=== PATIENT | male | born 1955 | race Caucasian/White ===

== ENCOUNTER 2016-10-09 11:10 | Inpatient (IN) | payer MEDICARE ==
[2016-10-09] VITALS (8 sets, daily range): BP systolic 108–138; BP diastolic 58–79; BMI 27.2
[~2016-10-09] VITALS: Ht 182.9 cm; Wt 79.8 kg
[2016-10-09 11:37] LABS: BASOPHILS 0.3 % (0-2); EOSINOPHILS 0 % (0-7); HEMATOCRIT 34.6 % (42.0-54.0); HEMOGLOBIN 10.8 g/dL (13.5-17.5); IMMATURE GRANULOCYTES 0.3 % (0-5); LYMPHOCYTES 6.6 % (15-50); MCH 27.7 pg (26.0-34.0); MCHC 31.2 g/dL (31.0-37.0); MCV 88.7 fL (80.0-100.0); MEAN PLATELET VOLUME 9.1 fL (7.4-10.4); MONOCYTES 6.5 % (2-11); NEUTROPHILS 86.3 % (40-80); PLATELET COUNT 246 10x3/uL (130-400); RDW 14.2 % (11.5-14.5); WBC 7.6 10x3/uL (4.8-10.8)
[2016-10-09 11:45] LABS: AMORPHOUS SEDIMENT <1+ /lpf (NONE SEEN); APPEARANCE HAZY (CLEAR); BACTERIA FEW /hpf (NONE SEEN); BILIRUBIN NEGATIVE (NEGATIVE); COLOR YELLOW (YELLOW); EPITHELIAL CELLS RARE /hpf (0-5); GLUCOSE 1000 mg/dL (NEGATIVE); KETONE MODERATE mg/dL (NEGATIVE); LEUKOCYTE ESTERASE NEGATIVE (NEGATIVE); MUCUS <1+ /lpf (NONE SEEN); NITRITE NEGATIVE (NEGATIVE); PROTEIN 2+ mg/dL (NEGATIVE); SPECIFIC GRAVITY 1.015 (1.005-1.020); UROBILINOGEN NORMAL (NORMAL); WHITE CELLS - URINE RARE /hpf (0-5); YEAST <1+ /hpf (NONE SEEN)
[2016-10-09 12:01] LABS: ALBUMIN 2.7 g/dL (3.4-5.0); ANION GAP 15.5 mmol/L (8-16); BILIRUBIN - TOTAL 0.51 mg/dL (0.2-1.3); CARBON DIOXIDE 26.9 mmol/L (21.0-32.0); CREATININE - SERUM 2.4 mg/dL (0.6-1.3); POTASSIUM - SERUM 4.4 mmol/L (3.5-5.1); PROTEIN - SERUM 8.4 g/dL (6.4-8.2)
--- NOTE | 2016-10-09 16:16 | NUR ---
TRIED TO CHECK FSBS USING GLUCOMETER. POPPED UP A MESSAGE 'HIGH CALL LAB STAT FOR GLUCOSE BLOOD DRAW.' PUT IN ORDER FOR STAT GLUCOSE
[2016-10-09 16:25] LABS: HEMOGLOBIN A1C 13.8 % (4.8-6.0)
--- NOTE | 2016-10-09 17:29 | NUR ---
CALLED REPORT TO BRENDEN KEARNEY.
[2016-10-09 17:34] LABS: CALCIUM 8.6 mg/dL (8.5-10.1); POTASSIUM - SERUM 4.6 mmol/L (3.5-5.1)
[2016-10-09 17:47] LABS: ANION GAP 18.8 mmol/L (8-16); CARBON DIOXIDE 26.8 mmol/L (21.0-32.0); CREATININE - SERUM 1.2 mg/dL (0.6-1.3)
--- NOTE | 2016-10-09 17:50 | NUR ---
TRANSFERED PATIENT TO ICU.
--- NOTE | 2016-10-09 18:26 | NUR ---
1755 PT RECIEVED IN THE ICU VIA WHEELCHAIR.. PT IS AWAKE AND ALERT.. THERE IS A DRESSING ON PTS LEFT FOOT CDI WITH A FOULORDER EMINATING FROM DRESSING ,, PT STATES THAT HE HAS BEEN TREATING THIS WOUND AND THAT IT IS NOW INFECTED AND THIS HAS AFFECTED HIS BLOOD SUGAR.. ASSISTED TO ICU BED AND MONITORING EQUIPMENT PLACED ON PT.. ORDERS REVIEWED AND BLOOD SUGAR IS OBTAINED..NS IS INFUSING INTO PIV ON LEFT AC AT 150CC/HR.. 1800 BS IS 562 AT THIS TIME AND SERUM KETONES ARE NEGATIVE INTENSE IV INSULIN THERAPY ORDERS REVIEWED FROM INTRANET STANDING ORDERS AND LABS ORDERED PRIOR TO INITIATION OF IV INSULIN..
--- NOTE | 2016-10-09 19:00 | NUR ---
Assessment completed per flowsheet, received patient resting in bed with eyes closed. Patient AOx4, demeanor is pleasant and calm. Eyes PERRLA @ 3mm with brisk response, sclera is white. S1/S2 noted with patient NSR on telemetry, rhythmic and regular. Breathing is even and unlabored on room air, lung sound clear upper with slightly diminished lower. Abdomen is round and soft, bowel sounds active x4. Patient uses urinal without assistance, no reported difficulties. Full ROM all extremities with upper pulses palpable, R lower palpable with doppler on L lower. Ulceration and sores noted L foot interor, scant bloody drainage noted on gauze. 20g PIV noted R AC, patent with fluids infusing. Denies pain or other needs at this time, all VSS and will continue to monitor.
[2016-10-09 19:23] LABS: POTASSIUM - SERUM 4.3 mmol/L (3.5-5.1)
--- NOTE | 2016-10-09 19:30 | NUR ---
Insulin protocol initiated, 14 unit bolus given with start rate of 4units/hr for BS 581. Will recheck per protocol.
[2016-10-09] MEDS ORDERED: PEPCID20 MG PO (20:57)
[2016-10-09] MEDS ORDERED: COREG6.25 MG PO (20:57)
[2016-10-09] MEDS ORDERED: FLORANEX / LACT1 TAB PO (20:58)
[2016-10-09] MEDS ORDERED: HUMALOG 30100 UNITS/ SC (20:58)
[2016-10-09] MEDS ORDERED: FERROUS SULFAT325 MG PO (20:59)
[2016-10-09] MEDS ORDERED: GLIPIZIDE10 MG PO (20:59)
[2016-10-09] MEDS ORDERED: VICTOZA0.6 MG/0.1 SQ (20:59)
[2016-10-09] MEDS ORDERED: LIPITOR80 MG PO (20:59)
[2016-10-09] MEDS ORDERED: ECOTRIN325 MG PO (21:00)
--- NOTE | 2016-10-09 21:00 | NUR ---
No visitors at this time, patient resting in bed with eyes closed. Denies pain or other needs at this time, all VSS and will continue to monitor.
--- NOTE | 2016-10-09 22:47 | NUR ---
Reassessment completed per flowsheet, patient resting in bed with eyes closed. Patient NSR on telemetry, rhythmic and regular. Breathing is even and unlabored on room air, O2 sat 99%. L foot pulses doppler, ulceration open with no drainage. Insulin GTT infusing, will continue to monitor per protocol. Denies pain or other needs at this time, all VSS and will continue to monitor.
[2016-10-10] VITALS (25 sets, daily range): BP systolic 97–149; BP diastolic 51–93; Ht 182.9 cm; Wt 79.8 kg
[2016-10-10 00:33] LABS: APPEARANCE HAZY (CLEAR); BILIRUBIN NEGATIVE (NEGATIVE); COLOR YELLOW (YELLOW); GLUCOSE 1000 mg/dL (NEGATIVE); KETONE NEGATIVE (NEGATIVE); LEUKOCYTE ESTERASE NEGATIVE (NEGATIVE); NITRITE NEGATIVE (NEGATIVE); PROTEIN 2+ mg/dL (NEGATIVE); UROBILINOGEN NORMAL (NORMAL)
[2016-10-10 00:41] LABS: AMORPHOUS SEDIMENT <1+ /lpf (NONE SEEN); BACTERIA MANY /hpf (NONE SEEN); EPITHELIAL CELLS 0-5 /hpf (0-5); HYALINE CAST OCC /lpf (NONE SEEN); MUCUS <1+ /lpf (NONE SEEN); SPERMATOZOA RARE /hpf (NONE SEEN); WHITE CELLS - URINE 0-5 /hpf (0-5)
--- NOTE | 2016-10-10 01:00 | NUR ---
Patient resting in bed with eyes closed, breathing is even and unlabored on room air. No further needs at this time, all VSS and will continue to monitor.
--- NOTE | 2016-10-10 02:56 | NUR ---
Reassessment completed per flowsheet, patient resting in bed with eyes closed. Patient NSR on telemetry with HR 84, rhythmic and regular. Breathing is even and unlabored on room air, O2 sat 98%. L foot ulceration noted, scant serosanguinous drainage noted. Patient remains on insulin drip per protocol, will continue to monitor. Patient denies pain or other needs at this time, all VSS and will continue to monitor.
[2016-10-10 04:21] LABS: BASOPHILS 0.3 % (0-2); EOSINOPHILS 0.4 % (0-7); HEMATOCRIT 30.4 % (42.0-54.0); HEMOGLOBIN 9.8 g/dL (13.5-17.5); IMMATURE GRANULOCYTES 0.1 % (0-5); LYMPHOCYTES 13.3 % (15-50); MCH 27.5 pg (26.0-34.0); MCHC 32.2 g/dL (31.0-37.0); MEAN PLATELET VOLUME 9.1 fL (7.4-10.4); MONOCYTES 8.4 % (2-11); NEUTROPHILS 77.5 % (40-80); PLATELET COUNT 243 10x3/uL (130-400); RBC 3.57 10x6/uL (4.20-6.10); RDW 14.1 % (11.5-14.5); WBC 6.8 10x3/uL (4.8-10.8)
[2016-10-10 04:25] LABS: MCV 85.2 fL (80.0-100.0)
[2016-10-10 04:39] LABS: ALBUMIN 2.3 g/dL (3.4-5.0); ANION GAP 9.5 mmol/L (8-16); BILIRUBIN - TOTAL 0.29 mg/dL (0.2-1.3); CALCIUM 8.6 mg/dL (8.5-10.1); CARBON DIOXIDE 29.3 mmol/L (21.0-32.0); POTASSIUM - SERUM 3.8 mmol/L (3.5-5.1); PROTEIN - SERUM 7.4 g/dL (6.4-8.2)
[2016-10-10 04:44] LABS: CREATININE - SERUM 1.9 mg/dL (0.6-1.3)
--- NOTE | 2016-10-10 05:00 | NUR ---
Chlorhexidine bath given and linen change performed, patient tolerated well. No further needs at this time, all VSS and will continue to monitor.
--- NOTE | 2016-10-10 07:30 | NUR ---
REPORT RECD PT CARE ASSUMED. PT IS ALERT AND ORIENTED X 4. S1S2 NOTED SR PER CM. LUNG SOUNDS CLR BILAT. PT C/O SOME NAUSEA, NO VOMITTING OR TENDERNESS TO PALPATION. PT HAS ULCERS TO LEFT FOOT, SEE SHIFT ASSESSMENT FOR MEASUREMENTS. ODOR NOTED, PITTING EDEMA TO EXREMITES WELL REDNESS AND IS HOT TO TOUCH. PT STATES THE ULCERS STARTED LAST NOVEMBER. PT ON INSULIN DRIP AT THIS TIME, BS 150. WILL TITRATE/DC DRIP NECASSARY. 2ND PIV STARTED TO LEFT ARM FOR OR TODAY. WILL REMAIN NPO. VSS. WILL MONITOR.
--- NOTE | 2016-10-10 08:27 | NUR ---
PT ASKED WAHT MEDICATION HE TAKES AT HOME FOR HIS DIABETES. PT STATES "I TAKE A WHOLE BUNCH OF MEDS BUT I HAVENT HAD THEN FOR A MONTH." PT STATES THAT HE DOES NOT HAVE A PCP AT THE MOMENT SO HE HAS NOT BEEN GETTING HIS MEDICINE.
--- NOTE | 2016-10-10 12:10 | NUR ---
SURGERY CANCELLED FOR TODAY. CONSULT CALLED TO DR WHITE TO EVAL LEFT LEG. PT PROVIED WITH LUNCH. CLEAN BANDAGE APPLIED TO LEFT FOOT.
--- NOTE | 2016-10-10 14:00 | NUR ---
PT EATS ABOUT 65% OF LUNCH. PT REQUESTS DRINK, COLD DRINK PROVIDED. VSS.
--- NOTE | 2016-10-10 16:00 | NUR ---
PT RESTING QUIETLY IN BED WITH EYES CLOSED. NO DISTRESS NOTED, VSS. WILL MONITOR.
--- NOTE | 2016-10-10 17:15 | NUR ---
DINNER TRAY PROVIDED. PT SITS AT SIDE OF THE BED TO EAT.
--- NOTE | 2016-10-10 19:00 | NUR ---
Assessment completed per flowsheet, received patient awake and alert in bed watching TV. Patient AO x4, calm and cooperative. Eyes PERRLA @ 3mm with brisk response, sclera is white. S1/S2 noted with patient NSR on telemetry, rhythmic and regular. Breathing is even and unlabored on room air, lung sounds clear all limon. Abdomen is soft and round, bowel sounds active x4. Patient uses urinal/bedside commode without assistance, no reported difficulties. Full ROM all extremities with upper pulses palpable, R lower palpable with L lower weak with Cap refill <3 sec. 20g PIV R AC/L Wrist, patent with fluids infusing. Patient denies pain or other needs at this time, all VSS and will continue to monitor.
--- NOTE | 2016-10-10 23:00 | NUR ---
Reassessment completed per flowsheet, patient resting in bed with eyes closed. Patient NSR on telemetry with HR 88, rhythmic and regular. Breathing is even and unlabored on room air, O2 sat 98%. Patient voided 300ml concentrated yellow urine in urinal, no difficulties. Patient denies pain or other needs at this time, all VSS and will continue to monitor.
[2016-10-11] VITALS (22 sets, daily range): BP systolic 108–165; BP diastolic 54–83
--- NOTE | 2016-10-11 03:00 | NUR ---
Reassessment completed per flowsheet, patient resting in bed with eyes closed. Patient NSR on telemetry with HR 79, rhythmic and regular. Breathing is even and unlabored on room air, O2 sat 97%. L foot dressing changed, yellow/pink drainage noted on gauze. Patient denies pain or other needs at this time, all VSS and will continue to monitor.
[2016-10-11 03:43] LABS: BASOPHILS 0.2 % (0-2); EOSINOPHILS 1.3 % (0-7); HEMATOCRIT 27.7 % (42.0-54.0); HEMOGLOBIN 8.7 g/dL (13.5-17.5); IMMATURE GRANULOCYTES 0.3 % (0-5); LYMPHOCYTES 15.2 % (15-50); MCH 27.1 pg (26.0-34.0); MCHC 31.4 g/dL (31.0-37.0); MCV 86.3 fL (80.0-100.0); MEAN PLATELET VOLUME 8.8 fL (7.4-10.4); MONOCYTES 12.6 % (2-11); NEUTROPHILS 70.4 % (40-80); PLATELET COUNT 211 10x3/uL (130-400); RBC 3.21 10x6/uL (4.20-6.10); RDW 14.3 % (11.5-14.5); WBC 6.1 10x3/uL (4.8-10.8)
[2016-10-11 04:01] LABS: ANION GAP 7.3 mmol/L (8-16); BILIRUBIN - TOTAL 0.36 mg/dL (0.2-1.3); CALCIUM 8.4 mg/dL (8.5-10.1); CARBON DIOXIDE 29.3 mmol/L (21.0-32.0); CREATININE - SERUM 1.8 mg/dL (0.6-1.3); POTASSIUM - SERUM 3.6 mmol/L (3.5-5.1); PROTEIN - SERUM 6.5 g/dL (6.4-8.2)
--- NOTE | 2016-10-11 07:00 | NUR ---
Received patient from Marcell WILCOX. Patient is currently resting in bed, AAO x4. Pleasent and calm. Patient denies pain. C/O some nausea at this time. Zofran administered recently, informed patient of this. Told him that if the nausea worsens to let me know and I would call physician for additional orders, he stated it wasnt that bad at this point. Left AC with NS and extended Zosyn gtt infusing, PIV without redness or tenderness. Right wrist PIV saline locked, flushes well, pt denies tenderness. Patient moves all extremitries without difficulty. Strength equal. Radial pulses bounding. Left foot swollen, red, with dressing. Scant drainage noted on dressing. Left great toe swollen and red, painful to touch. See shift assessment flowsheet for all findings.
--- NOTE | 2016-10-11 08:58 | NUR ---
through to see patient. POC discussed.
--- NOTE | 2016-10-11 09:27 | NUR ---
okays patient to transfer to floor if okay with others on healthcare team.
[2016-10-11 09:33] LABS: % SATURATION 20 % (15-55); IRON 23 ug/dl (35-150); TOTAL IRON BIND CAPACITY 114 ug/dl (260-445); UNSAT IRON BIND CAPACITY 91 ug/dl (150-375)
--- NOTE | 2016-10-11 09:39 | NUR ---
Spoke to Danna Tyler APRN for [facility], okay to transfer to floor from orthopedics standpoint. Patient on OR schedule for 1629 today.
--- NOTE | 2016-10-11 09:44 | NUR ---
Nutrition follow-up: Pt now NPO for left great toe amputation today PO intake has been ~50% of meals Labs reviewed +BM RDN will monitor patients diet advancement and tolerance post-surgery. Following.
--- NOTE | 2016-10-11 10:46 | NUR ---
Report called to Reggie WILCOX on MEd Surg. Pt to go to 2218 via wheelchair
--- NOTE | 2016-10-11 11:54 | NUR ---
Patient transferred to 2218 via wheelchair. Patient ambulated to and from chair without issue. Patient oriented to unit, room and given call light. Patient denied needs.
--- NOTE | 2016-10-11 13:00 | NUR ---
RECEIVED FROM ICU, DENIES NEEDS, BED LOWEST POSITION, CONTACT ISOLATION, WILL CONTINUE TO MONITOR
--- NOTE | 2016-10-11 19:00 | NUR ---
BEDSIDE REPORT RECEIVED AND CARE OF PT ASSUMED. PT IN SURGERY AT THIS TIME.
--- NOTE | 2016-10-11 21:00 | NUR ---
PT RETURNED FROM SURGERY VIA BED, ESCORTED BY ER NURSE. VITALS STABLE. PT AWAKE AND ALERT, AND C/O NO PAIN AT THIS ASSESSMENT. DRESSING ON LEFT FOOT CLEAN AND DRY.
--- NOTE | 2016-10-11 21:05 | NUR ---
GAVE SANDWICH, PUDDING AND MILK , PT HAS BEEN NPO ALL DAY.
--- NOTE | 2016-10-11 21:30 | NUR ---
STARTED IV FLUIDS PER ORDER.
--- NOTE | 2016-10-11 21:45 | NUR ---
GAVE CRANBERRY JUICE PER PT REQUEST.
--- NOTE | 2016-10-11 21:53 | NUR ---
HS MEDICATIONS GIVEN. FSBS 217 WHEN CHECKED IN RECOVERY. COVERED WITH 12 UNITS OF INSULIN PER SLIDING SCALE. WILL CONTINUE TO MONITOR FOR NEEDS.
--- NOTE | 2016-10-12 00:07 | NUR ---
ASSISTED PT TO USE BEDPAN FOR BM.
[2016-10-12 04:00] VITALS: BP 122/65
[2016-10-12 06:32] LABS: BASOPHILS 0.4 % (0-2); EOSINOPHILS 1.5 % (0-7); HEMATOCRIT 27.2 % (42.0-54.0); HEMOGLOBIN 8.7 g/dL (13.5-17.5); IMMATURE GRANULOCYTES 0.5 % (0-5); LYMPHOCYTES 15.7 % (15-50); MCH 27.8 pg (26.0-34.0); MCV 86.9 fL (80.0-100.0); MEAN PLATELET VOLUME 9.1 fL (7.4-10.4); MONOCYTES 11.2 % (2-11); NEUTROPHILS 70.7 % (40-80); PLATELET COUNT 225 10x3/uL (130-400); RBC 3.13 10x6/uL (4.20-6.10); RDW 14.8 % (11.5-14.5); WBC 5.5 10x3/uL (4.8-10.8)
[2016-10-12 07:01] LABS: ALBUMIN 1.9 g/dL (3.4-5.0); BILIRUBIN - TOTAL 0.47 mg/dL (0.2-1.3); CARBON DIOXIDE 27.2 mmol/L (21.0-32.0); CREATININE - SERUM 1.6 mg/dL (0.6-1.3); PROTEIN - SERUM 6.3 g/dL (6.4-8.2)
[2016-10-12 07:07] LABS: ANION GAP 10.1 mmol/L (8-16); POTASSIUM - SERUM 4.3 mmol/L (3.5-5.1)
--- NOTE | 2016-10-12 07:10 | NUR ---
PATIENT RECEIVED ALERT IN MID MIRANDA POSITION. RESPIRATIONS EVEN AND UNLABORED. SIDE RAILS UP X2. BED IN LOW POSITION. CALL LIGHT IN REACH. DENIES PAIN AND OTHER NEEDS.
[2016-10-12 07:50] VITALS: BP 165/93
--- NOTE | 2016-10-12 08:07 | NUR ---
PATIENT ALERT IN BED. RESPIRATIONS EVEN AND UNLABORED. DENIES NEEDS. SIDE RAILS UP X2. BED IN LOW POSITION. CALL LIGHT IN REACH.
[2016-10-12 08:22] LABS: FOLATE (FOLIC ACID) - SERUM 15.7 ng/mL (>3.0)
--- NOTE | 2016-10-12 11:30 | NUR ---
PATIENT ALERT IN BED. NO SIGNS OF DISTRESS NOTED. DENIES NEEDS. ACCU CHECK 307. INSULIN PER SLIDING SCALE. SIDE RAILS UP X2. BED IN LOW POSITION. CALL LIGHT IN REACH.
--- NOTE | 2016-10-12 11:38 | OP ---
PATIENT NAME: ALIN REICH MEDICAL RECORD: [id number] :53 LOCATION:[id number] ADMISSION DATE:10/09/16 SURGEON: TATY WHITE MD DATE OF OPERATION: 10/11/2016 Orthopedic Surgery Operative Note PREOPERATIVE DIAGNOSIS: Osteomyelitis of the left great toe and entire first metatarsal. POSTOPERATIVE DIAGNOSIS: Osteomyelitis of the left great toe and entire first metatarsal. PROCEDURES: Great toe and ray resection of the entire metatarsal along with excisional debridement of skin, subcutaneous tissue, portions of fat, fascia, muscle and bone with primary closure. INDICATIONS: Mr. Reich has very poorly controlled diabetes and has not been compliant for several months and came in with a blood sugar over 700 and hemoglobin A1c of 12. He has an ulcer and MRI showed that it was extending all along and into his metatarsal as well as throughout his great toe. OPERATIVE SUMMARY IN DETAIL: After obtaining the appropriate preoperative orthopedic surgery consent as well as anesthetic consultation, evaluation and clearance, the patient was brought to the operating room and placed on the operating table in supine position. After general laryngeal mask was administered, tourniquet was placed about the distal aspect of left lower extremity. The lower extremity was then prepped and draped in a routine sterile fashion. An incision was made across the great toe MTP joint, had fulminant pus. Cultures were taken times 3. The great toe was disarticulated and taken down. At this point, the excision was extended up the medial side of the first ray metatarsal. Dissection was carried subperiosteal around this and it too was disarticulated at the medial cuneiform metatarsal joint. At this point, sharp scalpel debridement along with curettage debridement was used to take everything down. The tourniquet had been deflated prior to this and then after all necrotic tissue was deflated, the tourniquet was let down. After a few moments, good bleeding was applied, in fact the deep plantar arch arterial supply bled to the point where it needed a medium Ligaclip. Given to only good blood supply and fresh red clean-appearing tissue, I felt it was reasonable to try and close this primarily. After a copious bulb syringe, lavage was done, 2-0 Prolene was done and a xgri-auv-xjn-near suture arrangements to close the entire area including the excised plantigrade ulcer. Having completed this, sterile dressings were applied. The patient was awakened, taken to recovery in stable condition. All final needle and sponge counts were correct. TRANSINT:[id number] Voice Confirmation ID: [id number] DOCUMENT ID: [id number] OPERATIVE REPORT [id number] ALIN REICH MD, TATY ECHEVERRIA at 1138 CC: [id number] DICTATION DATE: 10/11/162036 MANAGER PUBLISHING: 10/12/16 0245 ADM IN [id number] [place] [address]
[2016-10-12 12:10] VITALS: BP 160/78
--- NOTE | 2016-10-12 13:51 | NUR ---
NUTRITION MONITORING & EVAL CHART REVIEWED, PT VISIT. TOLERATING ADA DIET, 100% INTAKE RECENT MEALS. NOW IN ISOLATION. WILL CONTINUE TO PROVIDE ADA DIET, MONITOR PO INTAKE, PT PROGRESS. RD FOLLOWING
--- NOTE | 2016-10-12 14:43 | NUR ---
PATIENT IN LEFT LATERAL POSITION RESTING WITH EYES CLOSED. RESPIRATIONS EVEN AND UNLABORED. WAKES EASY. DENIES NEEDS. SIDE RAILS UP X2. BED IN LOW POSITION. CALL LIGHT IN REACH.
[2016-10-12 15:40] VITALS: BP 157/77
--- NOTE | 2016-10-12 17:38 | NUR ---
ALERT IN BED. ACCU CHECK 162. INSULIN PER SLIDING SCALE. SIDE RAILS UP X2. BED IN LOW POSITION. CALL LIGHT IN REACH. DENIES NEEDS.
--- NOTE | 2016-10-12 17:40 | NUR ---
IV TO LEFT WRIST RED AND PUFFY. IV D/C WITH CATH TIP INTACT. SECOND IV TO LEFT FOREARM SALINE LOCK AND PATENT. CURRENT ABX SWITCHED TO INFUSE TO LEFT FOREARM IV
[2016-10-12 20:00] VITALS: BP 138/75
--- NOTE | 2016-10-12 21:47 | NUR ---
PATIENT RESTING IN BED WITH NO SIGNS OF DISTRESS. CHECKED BLOOD GLUCOSE, RESULTS 189. NOTIFIED UNIQUE PAULSON OF RESULTS. BED IN LOWEST POSITION AND CALL LIGHT WITHIN REACH. ENCOURAGED THE PATIENT TO CALL IF HE HAS NEEDS.
[2016-10-13] VITALS (22 sets, daily range): BP systolic 124–152; BP diastolic 59–90
[2016-10-13 05:12] LABS: BASOPHILS 0.3 % (0-2); EOSINOPHILS 3.2 % (0-7); HEMATOCRIT 24.9 % (42.0-54.0); HEMOGLOBIN 7.8 g/dL (13.5-17.5); IMMATURE GRANULOCYTES 0.9 % (0-5); LYMPHOCYTES 19.4 % (15-50); MCH 27.2 pg (26.0-34.0); MCHC 31.3 g/dL (31.0-37.0); MCV 86.8 fL (80.0-100.0); MEAN PLATELET VOLUME 8.9 fL (7.4-10.4); NEUTROPHILS 65.2 % (40-80); PLATELET COUNT 249 10x3/uL (130-400); RBC 2.87 10x6/uL (4.20-6.10); RDW 14.8 % (11.5-14.5); WBC 6.3 10x3/uL (4.8-10.8)
[2016-10-13 05:40] LABS: ALBUMIN 1.7 g/dL (3.4-5.0); BILIRUBIN - TOTAL 0.5 mg/dL (0.2-1.3); CALCIUM 7.7 mg/dL (8.5-10.1); CARBON DIOXIDE 26.7 mmol/L (21.0-32.0); CREATININE - SERUM 1.5 mg/dL (0.6-1.3); POTASSIUM - SERUM 3.7 mmol/L (3.5-5.1); PROTEIN - SERUM 5.8 g/dL (6.4-8.2)
--- NOTE | 2016-10-13 07:10 | NUR ---
REPORT RECEIVED FROM RETAIL STORE ASSOCIATE NURSE. CALL LIGHT IN REACH.
--- NOTE | 2016-10-13 08:50 | NUR ---
ASSESSMENT COMPLETED. CONTACT ISOLATION. CALL LIGHT IN REACH. WILL CONTINUE WITH PLAN OF CARE.
--- NOTE | 2016-10-13 10:51 | NUR ---
AM MEDS ADMINISTERED. WILL START BLOOD AFTER IV ABX COMPLETED. CALL LIGHT IN REACH.
--- NOTE | 2016-10-13 12:39 | NUR ---
FSBS 206 SO 14 UNITS OF HUMALOG SUBQ TO LEFT ARM. VANCOMYCIN IVPB.
--- NOTE | 2016-10-13 14:10 | NUR ---
PRBC UNIT 1 INITIATED. VSS. NO NEEDS VOICED. CALL LIGHT IN REACH.
--- NOTE | 2016-10-13 14:18 | NUR ---
PT AOX4 RESP EVEN AND NONLABORED IV TO LEFT FOREARM PATENT AND INTACT. PT HERE FOR LEFT TOE AMPUTATION. ANTIBIOTICS AND IV FLUIDS, ALONG WITH PRBC'S GIVEN DURING THIS SHIFT. PT DENIES NEEDS AT THIS TIME. SRX2 CALL LIGHT WITHIN REACH. BED AT LOWEST SETTING WILL CONTINUE TO MONITOR
--- NOTE | 2016-10-13 15:46 | NUR ---
IV TO LEFT FOREARM WITH LEAKING. DC'D WITH TIP INTACT. RESITED TO LEFT HAND WITH 22 GA X1 STICK.
--- NOTE | 2016-10-13 17:15 | NUR ---
1ST UNIT OF BLOOD COMPLETED. FSBS 180 SO 10 UNITS SUBQ TO LEFT ARM. COREG AND GLIBIZIDE PO.
--- NOTE | 2016-10-13 19:00 | NUR ---
2ND UNIT OF INITIATED @ 125 CC/HR VIA PUMP PER BRENDEN MCKINNEY.
--- NOTE | 2016-10-14 03:41 | NUR ---
PT. IN BED WITH HOB UP FOR COMFORT LYING ON HIS LEFT SIDE. EYES ARE CLOSED AND RESP. DEEP AND EVEN. IV INFUSING VIA PUMP WITHOUT ANY PROBLEMS. CALL LIGHT REMAINS WITHIN REACH.
[2016-10-14 04:00] VITALS: BP 162/70
[2016-10-14 05:39] LABS: BASOPHILS 0.3 % (0-2); EOSINOPHILS 4.3 % (0-7); IMMATURE GRANULOCYTES 2.3 % (0-5); LYMPHOCYTES 20.3 % (15-50); MCH 27.6 pg (26.0-34.0); MCHC 31.7 g/dL (31.0-37.0); MCV 87.2 fL (80.0-100.0); NEUTROPHILS 64.8 % (40-80); PLATELET COUNT 284 10x3/uL (130-400); RDW 14.7 % (11.5-14.5); WBC 6.2 10x3/uL (4.8-10.8)
[2016-10-14 05:43] LABS: HEMATOCRIT 31.9 % (42.0-54.0); HEMOGLOBIN 10.1 g/dL (13.5-17.5); RBC 3.66 10x6/uL (4.20-6.10)
[2016-10-14 06:05] LABS: ANION GAP 12.6 mmol/L (8-16); BILIRUBIN - TOTAL 0.5 mg/dL (0.2-1.3); CALCIUM 8.2 mg/dL (8.5-10.1); CARBON DIOXIDE 25.5 mmol/L (21.0-32.0); CREATININE - SERUM 1.4 mg/dL (0.6-1.3); POTASSIUM - SERUM 4.1 mmol/L (3.5-5.1); PROTEIN - SERUM 6.6 g/dL (6.4-8.2)
[2016-10-14 07:00] VITALS: BP 160/75
--- NOTE | 2016-10-14 07:00 | NUR ---
REPORT RECEIVED FROM CATALYST UNIT OPERATOR NURSE. CALL LIGHT IN REACH.
--- NOTE | 2016-10-14 08:20 | NUR ---
ASSESSMENT COMPLETED. AM MEDS ADMINISTERED. CALL LIGHT IN REACH. WILL CONTINUE WITH PLAN OF CARE.
--- NOTE | 2016-10-14 10:40 | NUR ---
PATIENT IS AWAKE, ALERT AND ORIENTED X'S 4. RESPIRATIONS ARE EVEN AND UNLABORED ON ROOM AIR. NO SIGNS OF DISTRESS NOTED. PATIENT DENIES NEEDS. CONTACT ISOLATION PRECAUTIONS MAINTAINED. BED IN LOWEST POSITION, CALL LIGHT IN REACH. BED RAILS UP X'S 2.
--- NOTE | 2016-10-14 11:34 | NUR ---
FSBS 223 SO 14 UNITS HUMALOG SUBQ TO LEFT ARM. IV FLAGYL ADMINISTERED AND FLORAJEN PO. CALL LIGHT IN REACH.
[2016-10-14 12:32] VITALS: BP 160/75
--- NOTE | 2016-10-14 13:48 | NUR ---
LANTUS 15 UNITS SUBQ TO RIGHT ARM. VANC IVPB. DENIES PAIN OR NEEDS. CALL LIGHT IN REACH.
--- NOTE | 2016-10-14 14:50 | NUR ---
RESTING WITH EYES CLOSED. RESP EVEN AND UNLABORED. CALL LIGHT IN REACH.
[2016-10-14 14:57] VITALS: BP 147/76
--- NOTE | 2016-10-14 16:33 | NUR ---
GLIPIZIDE AND COREG PO. FSBS 136 SO NO COVERAGE REQUIRED. CALL LIGHT IN REACH.
--- NOTE | 2016-10-14 18:29 | NUR ---
NO CHANGES IN INITIAL ASSESSMENT. CALL LIGHT IN REACH. WILL CONTINUE WITH PLAN OF CARE.
[2016-10-14 20:00] VITALS: BP 158/80
--- NOTE | 2016-10-14 20:08 | NUR ---
PATIENT SITTING UP IN BED AND DENIES NEEDS AT THIS TIME. CHECKED PATIENT'S BLOOD GLUCOSE, RESULTS 204. NOTIFIED UNIQUE BUCKLEY OF RESULTS. BED IN LOWEST POSITION AND CALL LIGHT WITHIN REACH. ENCOURAGED THE PATIENT TO CALL IF HE HAS NEEDS.
[2016-10-15] VITALS: BP 144/77
[2016-10-15 04:00] VITALS: BP 143/78
[2016-10-15 06:13] LABS: BASOPHILS 0.1 % (0-2); EOSINOPHILS 4.1 % (0-7); HEMATOCRIT 31.4 % (42.0-54.0); HEMOGLOBIN 10.1 g/dL (13.5-17.5); IMMATURE GRANULOCYTES 2.8 % (0-5); LYMPHOCYTES 18.5 % (15-50); MCH 28.2 pg (26.0-34.0); MCHC 32.2 g/dL (31.0-37.0); MCV 87.7 fL (80.0-100.0); MEAN PLATELET VOLUME 8.9 fL (7.4-10.4); MONOCYTES 6.7 % (2-11); NEUTROPHILS 67.8 % (40-80); PLATELET COUNT 320 10x3/uL (130-400); RBC 3.58 10x6/uL (4.20-6.10); WBC 6.9 10x3/uL (4.8-10.8)
[2016-10-15 06:47] LABS: ALBUMIN 1.9 g/dL (3.4-5.0); ANION GAP 11.3 mmol/L (8-16); BILIRUBIN - TOTAL 0.4 mg/dL (0.2-1.3); CARBON DIOXIDE 28.5 mmol/L (21.0-32.0); CREATININE - SERUM 1.2 mg/dL (0.6-1.3); POTASSIUM - SERUM 3.8 mmol/L (3.5-5.1); PROTEIN - SERUM 6.4 g/dL (6.4-8.2); THYROID STIMULATING HORMONE 0.5 uIU/mL (0.36-3.74)
--- NOTE | 2016-10-15 07:30 | NUR ---
PATIENT AWAKE, ALERT AND ORIENTED X'S 4. RESPIRATIONS ARE EVEN AND UNLABORED ON ROOM AIR. NO SIGNS OF DISTRESS NOTED. +1 PITTING EDEMA TO LEFT LEG AND FOOT. DRESSING INTACT TO LEFT FOOT, AMNA WRAP AROUND IT, NOT TOO TIGHT. CAPILLARY REFILL <3 SECONDS TO LEFT FOOT (AND ALL EXTREMETIES) LEFT FOOT TOES ARE PINK, AND WARM. PALPATED BILATERAL PEDAL PULSES, +2 BILATERALLLY.
[2016-10-15 07:38] VITALS: BP 173/90
[2016-10-15 13:35] VITALS: BP 174/82
--- NOTE | 2016-10-15 13:58 | NUR ---
Patient Name: ALIN FALLON Admission Status: ER Accout number: [id number] Admission Date: 10-09-2016 : 1955 Admission Diagnosis:PAIN IN LEFT FOOT Attending: DON Current LOS: 6 Anticipated DC Date: 10-16-2016 Planned Disposition: Home with Home Health Primary Insurance: spigit Discharge Planning Comments: CM MET WITH PATIENT REGARDING D/C NEEDS AND PLANS. PATIENT STATED HIS BROTHER WILL DRIVE HIM HOME AT DISCHARGE. PATIENT HAS A RAMP TO ENTER HIS HOME AND HAS NO STAIRS INSIDE. PATIENT IS INDEPENDENT WITH HIS CARE AND HAS A CANE, SHOWER CHAIR, AND GLUCOMETER AT HOME. PATIENT DOES NOT HAVE A PCP AND USES [facility] ON [address]. PATIENT CHOSE [facility] - IF THEY CANNOT ACCEPT PATIENT HIS SECOND CHOICE WAS [facility]. PATIENT SIGNED THE ROSA FORM. PATIENT SHOULD BE GOING HOME ON IV ANTIBIOTICS AT DISCHARGE. CM WILL CONTINUE TO FOLLOW PATIENT WITH D/C NEEDS AND PLANS. PCP NONE [facility] [address] [phone] ULICES FALLON (BROTHER) [phone] Apprentice Pattern Maker: Kaitlyn Whittaker Is the patient Alert and Oriented? Yes 0 * How many steps to enter\exit or inside your home? RAMP 0 * PCP NONE 0 * Pharmacy [facility] [address] 0 * Preadmission Environment Home Alone 0 * ADLs Independent 0 * Equipment Cane Glucometer Shower Chair 0 * List name and contact numbers for known caregivers / representatives who currently or will assist patient after discharge: ULICES FALLON (BROTHER) [phone] * Community resources currently utilized None 0 * Additional services required to return to the preadmission environment? Yes 0 * Can the patient safely return to the preadmission environment? Yes 0 * Has this patient been hospitalized within the prior 30 days at any hospital? No 0 Grand Total: 0
[2016-10-15 16:17] VITALS: BP 153/71
--- NOTE | 2016-10-15 16:29 | NUR ---
CM REASSESSMENT NOTE: IV ANTIBIOTIC ORDER FAXED TO [facility]. KEYANNA WILL CALL CM TOMORROW AM WITH COST. CM WILL CONTINUE TO FOLLOW PATIENT WITH D/C NEEDS AND PLANS.
--- NOTE | 2016-10-15 16:45 | NUR ---
D/C IV WITH CATHETER INTACT
[2016-10-15 20:00] VITALS: BP 170/82
--- NOTE | 2016-10-15 20:00 | NUR ---
ASSESSMENT PER FLOWSHEET. IV PATENT LEFT AC MIDLINE SITE SALINE LOCKED. AMNA WRAP TO LEFT FOOT C/D/I. VOIDS IN URINAL. DENIES NEEDS.
--- NOTE | 2016-10-15 21:15 | NUR ---
ABFX=808. HUMALOG INSULIN GIVEN PER S/S. PT IN CONTACT ISOLATION.PT REQUESTIING SANDWICH TRAY FOR HS SNACK. TRAY GIVEN TO PATIENT.
--- NOTE | 2016-10-15 22:00 | NUR ---
MEDS PER MAR.
--- NOTE | 2016-10-16 | NUR ---
EYES CLOSED RESPIRATIONS WITH EASE AND UNLABORED.
--- NOTE | 2016-10-16 03:00 | NUR ---
EYES CLOSED RESPIRATIONS WITH EASE AND UNLABORED.
[2016-10-16 04:00] VITALS: BP 166/72
[2016-10-16 06:05] LABS: BASOPHILS 0.4 % (0-2); EOSINOPHILS 2.9 % (0-7); HEMATOCRIT 32.5 % (42.0-54.0); HEMOGLOBIN 10.5 g/dL (13.5-17.5); IMMATURE GRANULOCYTES 2.5 % (0-5); LYMPHOCYTES 18.4 % (15-50); MCH 28.5 pg (26.0-34.0); MCHC 32.3 g/dL (31.0-37.0); MCV 88.3 fL (80.0-100.0); MONOCYTES 9.5 % (2-11); NEUTROPHILS 66.3 % (40-80); PLATELET COUNT 358 10x3/uL (130-400); RBC 3.68 10x6/uL (4.20-6.10); RDW 15.2 % (11.5-14.5)
[2016-10-16 06:24] LABS: ANION GAP 11.3 mmol/L (8-16); CALCIUM 7.9 mg/dL (8.5-10.1); CARBON DIOXIDE 27.6 mmol/L (21.0-32.0); CREATININE - SERUM 1.3 mg/dL (0.6-1.3); POTASSIUM - SERUM 3.9 mmol/L (3.5-5.1)
--- NOTE | 2016-10-16 07:30 | NUR ---
PATIENT RECEIVED ALERT IN HIGH MIRANDA POSITION. RESPIRATIONS EVEN AND UNLABORED. DENIES NEEDS. SIDE RAILS UP X2. BEDIN LOW POSITION. CALL LIGHT IN REACH.
[2016-10-16 07:59] VITALS: BP 171/100
--- NOTE | 2016-10-16 08:28 | NUR ---
ALERT IN HIGH MIRANDA POSITION. RESPIRATIONS EVEN AND UNLABORED. SCHEDULED MEDICATION ADMINISTERED. DENIES NEEDS. SIDE RAILS UP X2. BED IN LOW POSITION. CALL LIGHT IN REACH.
--- NOTE | 2016-10-16 10:57 | NUR ---
NUTRITION MONITORING & EVAL CHART REVIEWED, PT REMAINS IN ISOLATION. TOLERATING ADA DIET WITH 100% INTAKE RECENT MEALS. RD FOLLOWING
--- NOTE | 2016-10-16 11:35 | NUR ---
ACCU CHECK 204. INSULIN PER SLIDING SCALE. DENIES NEEDS. SIDE RAILS UP X2. BED IN LOW POSITION. CALL LIGHT IN REACH.
[2016-10-16 11:38] VITALS: BP 181/96
[2016-10-16 13:45] VITALS: BP 130/64
[2016-10-16] MEDS ORDERED: BACTRIM DS TABL1 TAB PO (15:04)
[2016-10-16] MEDS ORDERED: VANCOMYCIN 1 GM/1 G1 IV (15:04)
--- NOTE | 2016-10-16 15:13 | NUR ---
CM REASSESSMENT NOTE: PATIENT IS DISCHARGING HOME TODAY-BROTHER IS DRIVING HIM. PATIENT HAS CHOSEN [facility]. [facility] IS DELIVERING ANTIBIOTICS TO PATIENTS HOME AROUND 9PM. [employer] WILL MEET THEM AT HOME AND TEACH IV ABX TO PATIENT AND FAMILY. PATIENT HAD NO OTHER NEEDS FOR DISCHARGE.
--- NOTE | 2016-10-16 15:23 | NUR ---
CM REASSESSMENT NOTE: PATIENT IS DISCHARGING HOME TODAY-BROTHER IS DRIVING HIM. PATIENT HAS CHOSEN [facility]. [facility] [facility] IS DELIVERING ANTIBIOTICS TO PATIENTS HOME AROUND 9PM. [facility] WILL MEET THEM AT HOME AND TEACH IV ABX TO PATIENT AND FAMILY. PATIENT HAD NO OTHER NEEDS FOR DISCHARGE.
[2016-10-16 15:48] VITALS: BP 172/72
--- NOTE | 2016-10-16 17:27 | NUR ---
D/C TEACHING PROVIDED TO PATIENT AND SON. STATES UNDERSTANDING. QUESTIONS ANSWERED. TAKEN DOWNSTAIRS VIA WHEELCHAIR WITH CECILIA, NURSE AID
--- NOTE | 2016-10-17 09:43 | PN ---
PATIENT:ALIN FALLON MEDICAL RECORD: [id number] LOCATION:[facility] ADMISSION DATE: 10/09/16 PROGRESS NOTE DATE OF SERVICE: 10/10/2016 ADDENDUM CHIEF COMPLAINT: None. SUBJECTIVE: The patient looks clinically improved. I have discussed this case with Dr. Hernandez earlier today. The options that I could offer him would be a ray amputation of the left foot versus a [id number]-dmo-[id number] amputation. The patient may benefit from a creative forefoot, mid foot or hindfoot amputation that would allow him to continue to ambulate. I recommended an orthopedic consultation. Palpation aggravates. Nothing alleviates. The patient has been seen by Dr. Queen's advanced practice nurse. I will go ahead and sign off as he will be assuming wound care for this patient. This is a progress note addendum. For the typed portion of the progress note, please see the chart. This will include the past medical and surgical history, allergies, social history as well as current medications. REVIEW OF SYSTEMS: Positive for nausea, positive for some dyspnea. PHYSICAL EXAMINATION: GENERAL: The patient appears acutely ill. Also appears chronically ill. VITAL SIGNS: Reviewed. HEAD: External ears appear normal. EYES: Extraocular movements are intact. NECK: Trachea is midline. CHEST: No intercostal retractions. PULMONARY: Nonlabored, no stridor. ABDOMEN: No peritonitis. INTEGUMENT: There is an intertriginous rash. Malodorous drainage from the left foot. BACK: No thoracic kyphosis. LYMPHATIC: No lymphangitic streaking of the exposed extremities. NEUROLOGIC: Nonfocal, no lethargy. The patient has decreased sensation in the feet. IMPRESSION: Diabetic left foot infection. PLAN: Orthopedic consultation. I will see the patient on a p.r.n. basis. TRANSINT:[id number] Voice Confirmation ID: [id number] DOCUMENT ID: [id number] PROGRESS NOTE [id number] ALIN FALLON, HUBER MERCADO at 0943 CC: [id number] DICTATION DATE: 10/10/16 1754 SHALE PROCESSING TECHNICIAN: 10/11/16 0951 DIS IN 10/16/16 [id number] [place] [address]
--- NOTE | 2016-10-17 09:43 | CN ---
PATIENT NAME:ALIN FALLON MEDICAL RECORD: [id number] : 51 LOCATION:D.MS [facility]8 ADMIT DATE: 10/09/16 ACCOUNT: [id number] CONSULTING PHYSICIAN: HUBER APONTE MD REFERRING PHYSICIAN: JADYN BYRNES MD DATE OF CONSULTATION: 10/09/2016 Consultation Note Addendum CHIEF COMPLAINT: Infection. HISTORY OF PRESENT ILLNESS: The patient has a diabetic left foot infection. I was asked to see the patient to consider drainage some of the infection versus debridement versus amputation. The patient had a bulla on the dorsum of the foot which ruptured spontaneously upon movement. The patient has a lot of malodorous drainage from the foot. Has a lot of erythema and induration, particularly the medially and the great toe is quite enlarged. The patient was moved from the floor to the intensive care unit to be placed on insulin drip. I am going to plan for excisional debridement in the operating room on 10/10/2016. Palpation aggravates. Nothing alleviates. The patient states he has problems with his left foot for months. This is a consultation note addendum. The typed portion of the consult note can be seen in the chart. This includes the past medical and surgical history, allergies, current medications, and social history. REVIEW OF SYSTEMS: He has had some fever. Also, some nausea. Some shortness of breath as well. Other review of systems is negative other than as is described above. PHYSICAL EXAMINATION: GENERAL: He does appear chronically ill. Also appears acutely ill. VITAL SIGNS: Reviewed. HEAD: External ears appear normal. EYES: Extraocular movements are intact. NECK: Trachea is midline. CHEST: No intercostal retractions. PULMONARY: Nonlabored, no stridor. ABDOMEN: No peritonitis with movement. EXTREMITIES: As described above. PSYCHIATRIC: Normal affect. NEUROLOGIC: Nonfocal, no lethargy. The patient answers questions appropriately. PSYCHIATRIC: Normal affect. BACK: No thoracic kyphosis. LYMPHATICS: No lymphangitic streaking of the exposed extremities. IMPRESSION: 1. Extremely hyperglycemia requiring insulin drip. The patient appears to be in diabetic ketoacidosis. 2. Limb threatening infection due to diabetic foot infection. CONSULT REPORT [id number] ALIN FALLON PLAN: As described above. TRANSINT:[id number] Voice Confirmation ID: [id number] DOCUMENT ID: [id number] HUBER APONTE MD at 0943 CC: [id number] DICTATION DATE: 10/10/16 173 APPLIED BEHAVIOR SPECIALIST: 10/11/16 0301 DIS IN 10/16/16 [place] [id number] [place] [id number]
== END 2016-10-16 17:28 | disposition home health service (06) | DRG 617 ==
LOC: D.ER 11:10 → D.ICU 12:45 → D.MS 12:45 → D.ICU 17:48 → D.MS 10-11 11:45
PROVIDERS: Emergency Medicine; Internal Medicine; ADMIT Family Medicine Adult Medicine
DX: E11.621 Type 2 diabetes mellitus with foot ulcer (principal); E87.1 Hypo-osmolality and hyponatremia; L03.116 Cellulitis of left lower limb; M86.172 Other acute osteomyelitis, left ankle and foot; L97.523 Non-pressure chronic ulcer of other part of left foot with necrosis of muscle; Z79.4 Long term (current) use of insulin; E11.65 Type 2 diabetes mellitus with hyperglycemia; I25.10 Atherosclerotic heart disease of native coronary artery without angina pectoris; I10 Essential (primary) hypertension; E78.5 Hyperlipidemia, unspecified; D64.9 Anemia, unspecified; N17.9 Acute kidney failure, unspecified; Z95.1 Presence of aortocoronary bypass graft

== ENCOUNTER 2016-11-19 11:28 | Inpatient (IN) | payer MEDICARE ==
[~2016-11-19] VITALS: Ht 182.9 cm; Wt 90.3 kg
--- NOTE | ~2016-11-19 | OP ---
PATIENT NAME: ALIN FALLON MEDICAL RECORD: [id number] :51 LOCATION:D.MS [facility]2223 ADMISSION DATE:11/19/16 SURGEON: TATY WHITE MD DATE OF OPERATION: 11/26/2016 DATE OF OPERATION: 11/22 PREOPERATIVE DIAGNOSIS: Osteomyelitis of the second toe of the left foot. POSTOPERATIVE DIAGNOSIS: Osteomyelitis of the second toe of the left foot. PROCEDURE: 1. Second ray resection of the left foot. 2. Excisional debridement of the left foot to include skin, subcutaneous tissue, portions of fat, fascia, muscle and bone greater than 20 cm, lastly is application of wound VAC. SURGEON: Taty White MD. ANESTHESIA: General. INTRAOPERATIVE COMPLICATIONS: None. SUMMARY OF PATHOLOGIC FINDINGS: The patient obviously had as the MRI documented osteomyelitis of the ____. This required complete resection. The wound is not too big, status post second toe resection to close and required a wound VAC. OPERATIVE SUMMARY IN DETAIL: After obtaining the appropriate preoperative orthopedic surgery consent as well as anesthetic consultation, evaluation and clearance, the patient was brought to the operating room and placed on the operating table in supine position. After general laryngeal mask was administered, the patient's left lower extremity was prepped and draped in routine sterile fashion. A circumferential incision about the second toe was followed by dissection of the second toe, which obviously had purulence in the MTP joint. The second metatarsal was then dissected down and around where the patient had obvious purulence in this plane back to where it did appear that the metatarsal is healthy, was dissected and then sagittal saw was used to complete the metatarsal excision. The residual bone of the wound was then both curettage rongeured as well as a sharp scalpel debridement was utilized to debride all nonviable appearing tissue. At this point, a portion of the wound was closed all the way out to where the toe was then a wound VAC was applied and placed on 25 mm of continuous suction intermediate intensity. The patient was awakened, taken to recovery room in stable condition. All final needle and sponge counts were correct. TRANSINT:[id number] Voice Confirmation ID: [id number] DOCUMENT ID: [id number] OPERATIVE REPORT [id number] ALIN FALLON MD, JAMES KEVIN CC: [id number] DICTATION DATE: 11/26/16 3725 GLOBAL LEAD: 11/26/16 2339 DIS IN 11/26/16 [facility] [address] [facility] [place] [address]
[~2016-11-19 11:28] MED LIST: BACTRIM DS TABL1 TAB PO; COREG6.25 MG PO; ECOTRIN325 MG PO; FERROUS SULFAT325 MG PO; FLORANEX / LACT1 TAB PO; GLIPIZIDE10 MG PO; HUMALOG 30100 UNITS/ SC; LIPITOR80 MG PO; PEPCID20 MG PO; VANCOMYCIN 1 GM/1 G1 IV; VICTOZA0.6 MG/0.1 SQ
--- NOTE | 2016-11-19 11:45 | NUR ---
RECEIVED TO ROOM [address] WHITE'S OFFICE. IV SITED TO 20 [facility] X 1 ATTEMPT BY PATRICIA GRAY RN. ADMIT ASSESSMENT COMPLETED.
[2016-11-19] MEDS ORDERED: LANTUS INSULIN10 ML SC (11:53)
[2016-11-19 11:59] VITALS: BP 143/68; BMI 27.2
[2016-11-19 13:03] LABS: BASOPHILS 0.3 % (0-2); EOSINOPHILS 2.1 % (0-7); HEMATOCRIT 28.3 % (42.0-54.0); IMMATURE GRANULOCYTES 0.3 % (0-5); LYMPHOCYTES 9.7 % (15-50); MCHC 31.8 g/dL (31.0-37.0); MCV 87.9 fL (80.0-100.0); MEAN PLATELET VOLUME 8.7 fL (7.4-10.4); MONOCYTES 11.6 % (2-11); PLATELET COUNT 257 10x3/uL (130-400); RBC 3.22 10x6/uL (4.20-6.10); RDW 15.2 % (11.5-14.5); WBC 7.5 10x3/uL (4.8-10.8)
[2016-11-19 13:19] LABS: ANION GAP 12.4 mmol/L (8-16); C-REACTIVE PROTEIN 17.9 mg/dL (0.0-0.9); CALCIUM 8.5 mg/dL (8.5-10.1); CARBON DIOXIDE 25.5 mmol/L (21.0-32.0); CREATININE - SERUM 1.6 mg/dL (0.6-1.3); POTASSIUM - SERUM 3.9 mmol/L (3.5-5.1)
[2016-11-19 13:27] LABS: HEMOGLOBIN A1C 10.3 % (4.8-6.0)
[2016-11-19 14:12] LABS: ERYTHROCYTE SEDIMENTATION RATE 100 mm/hr (0-20)
--- NOTE | 2016-11-19 14:41 | NUR ---
DR RIOS BY TO SEE PATIENT. PLACED IN CONTACT ISOLATION FOR HISTORY OF MRSA ON LAST RECENT ADMISSION.
--- NOTE | 2016-11-19 15:57 | NUR ---
OFF FLOOR TO MRI VIA .
[2016-11-19 16:15] VITALS: BP 126/63
--- NOTE | 2016-11-19 17:30 | NUR ---
DENIES ANY NEEDS AT PRESENT. DRESSING INTACT TO L FOOT.
[2016-11-19 19:00] VITALS: BP 134/52
[2016-11-20 04:00] VITALS: BP 120/46
[2016-11-20 05:07] LABS: BASOPHILS 0.1 % (0-2); EOSINOPHILS 3.3 % (0-7); HEMATOCRIT 26.1 % (42.0-54.0); HEMOGLOBIN 8.4 g/dL (13.5-17.5); IMMATURE GRANULOCYTES 0.3 % (0-5); LYMPHOCYTES 19.3 % (15-50); MCH 28.1 pg (26.0-34.0); MCHC 32.2 g/dL (31.0-37.0); MCV 87.3 fL (80.0-100.0); MEAN PLATELET VOLUME 8.7 fL (7.4-10.4); MONOCYTES 11.2 % (2-11); NEUTROPHILS 65.8 % (40-80); PLATELET COUNT 252 10x3/uL (130-400); RBC 2.99 10x6/uL (4.20-6.10); RDW 15.4 % (11.5-14.5); WBC 7.1 10x3/uL (4.8-10.8)
[2016-11-20 05:31] LABS: ALBUMIN 2.2 g/dL (3.4-5.0); ANION GAP 12.3 mmol/L (8-16); BILIRUBIN - TOTAL 0.45 mg/dL (0.2-1.3); CALCIUM 8.1 mg/dL (8.5-10.1); CARBON DIOXIDE 24.4 mmol/L (21.0-32.0); CREATININE - SERUM 1.7 mg/dL (0.6-1.3); POTASSIUM - SERUM 3.7 mmol/L (3.5-5.1); PROTEIN - SERUM 6.7 g/dL (6.4-8.2)
--- NOTE | 2016-11-20 07:40 | NUR ---
PT AOX4 RESP EVEN AND NONLABORED PT DENIES NEEDS AT THIS TIME IV TO RIGHT ARM PATENT AND INTACT SRX2 BED AT LOWEST SETTING CALL LIGHT WITHIN REACH WILL CONTINUE TO MONITOR
--- NOTE | 2016-11-20 08:32 | NUR ---
Patient Name: ALIN FALLON Admission Status: Urgent Accout number: [id number] Admission Date: 11-19-2016 : 1955 Admission Diagnosis: Attending: TONIE Current LOS: 1 Anticipated DC Date: 11-23-2016 Planned Disposition: Home with Home Health Primary Insurance: Siving Egil [place] Discharge Planning Comments: CM MET WITH PATIENT REGARDING D/C NEEDS AND PLANS. PATIENT STATED HE LIVES ALONE AND HIS BROTHER (ULICES) WILL DRIVE HIM HOME AT DISCHARGE. PATIENT HAS RAMP W/2STEPS OUTSIDE TO ENTER HOME AND NO STAIRS INSIDE. PATIENTS PCP IS DR. ROSAS AND PHARMACY IS [facility] [address]. PATIENT IS INDEPENDENT WITH HIS CARE AND HAS A CANE, WALKER, SHOWER CHAIR, AND GLUCOMETER AT HOME. PATIENT USED [facility] HIS LAST VISIT AND HAS SIGNED THE ROSA FORM WITH [employer] AGAIN IF NEEDED. CM WILL CONTINUE TO FOLLOW PATIENT WITH D/C NEEDS AND PLANS. PCP DR. [facility] [address]- [phone] ULICES FALLON (BROTHER) [phone] Legal Technician: Kaitlyn Whittaker Is the patient Alert and Oriented? Yes 0 * How many steps to enter\exit or inside your home? RAMP/2 0 * PCP DR. ROSAS 0 * Pharmacy [facility] [address] 0 * Preadmission Environment Home Alone 0 * ADLs Independent 0 * Equipment Cane Glucometer Shower Chair Walker 0 * List name and contact numbers for known caregivers / representatives who currently or will assist patient after discharge: ULICES FALLON (BROTHER) [phone] * Community resources currently utilized None 0 * Additional services required to return to the preadmission environment? Yes 0 * Can the patient safely return to the preadmission environment? Yes 0 * Has this patient been hospitalized within the prior 30 days at any hospital? No 0 Grand Total: 0
[2016-11-20 08:49] VITALS: BP 141/66
[2016-11-20 12:41] VITALS: BP 153/72
[2016-11-20 13:44] VITALS: Ht 182.9 cm; Wt 90.3 kg
[2016-11-20 16:23] VITALS: BP 135/65
--- NOTE | 2016-11-20 20:00 | NUR ---
ASSESSMENT PER FLOWSHEET. SR UP X2 CALL LIGHT WITHIN REACH IV PATENT RT ARM OF1/2NS INFUSING AT 50CC'S/HR. PT IN CONTACT ISOLATION. DRESSING TO LEFT FOOT C/D/I.
--- NOTE | 2016-11-20 21:30 | NUR ---
MEDS GIVEN PER MAR.
[2016-11-20 23:11] VITALS: BP 143/63
[2016-11-21] VITALS (12 sets, daily range): BP systolic 127–161; BP diastolic 55–71
--- NOTE | 2016-11-21 | NUR ---
EYES CLOSED RESPIRATIONS WITH EASE AND UNLABORED.
--- NOTE | 2016-11-21 03:00 | NUR ---
RESTING QUIETLY DENIES NEEDS.
[2016-11-21 05:19] LABS: BASOPHILS 0.2 % (0-2); EOSINOPHILS 5.7 % (0-7); HEMATOCRIT 25.9 % (42.0-54.0); HEMOGLOBIN 8.3 g/dL (13.5-17.5); IMMATURE GRANULOCYTES 0.5 % (0-5); LYMPHOCYTES 19.5 % (15-50); MCH 28.1 pg (26.0-34.0); MCV 87.8 fL (80.0-100.0); MEAN PLATELET VOLUME 8.5 fL (7.4-10.4); MONOCYTES 12.4 % (2-11); NEUTROPHILS 61.7 % (40-80); PLATELET COUNT 275 10x3/uL (130-400); RBC 2.95 10x6/uL (4.20-6.10); RDW 15.4 % (11.5-14.5); WBC 6.5 10x3/uL (4.8-10.8)
[2016-11-21 06:12] LABS: ALBUMIN 2.1 g/dL (3.4-5.0); ANION GAP 13.8 mmol/L (8-16); BILIRUBIN - TOTAL 0.4 mg/dL (0.2-1.3); CALCIUM 8.3 mg/dL (8.5-10.1); CREATININE - SERUM 1.7 mg/dL (0.6-1.3); POTASSIUM - SERUM 3.8 mmol/L (3.5-5.1); PROTEIN - SERUM 6.8 g/dL (6.4-8.2)
--- NOTE | 2016-11-21 07:35 | NUR ---
PATIENT RECEIVED ALERT IN LOW MIRANDA POSITION. NO SIGNS OF DISTRESS NOTED. DENIES NEEDS. SIDE RAILS UP X2. BED IN LOW POSITION. CALL LIGHT IN REACH.
--- NOTE | 2016-11-21 08:38 | NUR ---
ALERT IN BED EATING BREAKFAST. TOLERATING WELL. SCHEDULED MEDICATION ADMINISTERED. SIDE RAILS UP X2. BED IN LOW POSITION. CALL LIGHT IN REACH. DENIES PAIN AND OTHER NEEDS.
--- NOTE | 2016-11-21 10:15 | NUR ---
20 GAUGE IV SITED TO RIGHT FOREARM X2 ATTEMPT. FLUSHES EASY WITH BLOOD RETURN PRESENT. SECURE WITH TAPE AND TEGADERM. WELL TOLERATED.
--- NOTE | 2016-11-21 10:30 | NUR ---
PRBC INITIATED PER ORDER TO RIGHT FOREARM IV. IV PATENT. FLUSHES EASY. NO REDNESS OR INFLAMMATION NOTED. VITAL SIGNS STABLE. SIDE RAILS UP X2. BED IN LOW POSITION. CALL LIGHT IN REACH.
--- NOTE | 2016-11-21 11:08 | NUR ---
ACCU CHECK 191. INSULIN PER SLIDING SCALE. DENIES NEEDS. SIDE RAILS UP X2. BED IN LOW POSITION. CALL LIGHT IN REACH.
--- NOTE | 2016-11-21 13:24 | NUR ---
PRBC TRANSFUSION COMPLETE. WELL TOLERATED. VITAL SIGNS STABLE. SIDE RAILS UP X2. BED IN LOW POSITION. CALL LIGHT IN REACH.
--- NOTE | 2016-11-21 17:52 | NUR ---
ALERT IN BED EATING DINNER. TOLERATING WELL. DENIES NEEDS. SIDE RAILS UP X2. BED IN LOW POSITION. CALL LIGHT IN REACH.
--- NOTE | 2016-11-21 20:00 | NUR ---
ASSESSMENT PER FLOWSHEET. DRESSING TO LEFT FOOT C/D/I. IV PATENT RT WRIST OF 1/2NS AT 50CC'S/HR. RUCHI SCHNEIDER PATENT RT FOREARM. SITES X2 C/D/I. DENIES PAIN.
--- NOTE | 2016-11-21 22:00 | NUR ---
MEDS GIVEN PER MAR.NFGH=[phone]. NO COVERAGE.
[2016-11-22] VITALS: BP 140/89
--- NOTE | 2016-11-22 | NUR ---
NPO FOR SURGERY IN AM.
--- NOTE | 2016-11-22 03:00 | NUR ---
RESTING QUIETLY MEDS PER AUG.
[2016-11-22 04:00] VITALS: BP 157/82
--- NOTE | 2016-11-22 05:27 | NUR ---
EYES CLOSED RESPIRATIONS WITH EASE AND UNALBORED.
[2016-11-22 05:41] LABS: BASOPHILS 0.3 % (0-2); EOSINOPHILS 5.8 % (0-7); HEMATOCRIT 29.4 % (42.0-54.0); HEMOGLOBIN 9.5 g/dL (13.5-17.5); IMMATURE GRANULOCYTES 0.6 % (0-5); LYMPHOCYTES 19.4 % (15-50); MCH 27.9 pg (26.0-34.0); MCHC 32.3 g/dL (31.0-37.0); MCV 86.5 fL (80.0-100.0); MEAN PLATELET VOLUME 8.5 fL (7.4-10.4); MONOCYTES 7.5 % (2-11); NEUTROPHILS 66.4 % (40-80); PLATELET COUNT 271 10x3/uL (130-400); RDW 15.9 % (11.5-14.5); WBC 7.2 10x3/uL (4.8-10.8)
[2016-11-22 06:18] LABS: ALBUMIN 2.2 g/dL (3.4-5.0); ANION GAP 12.8 mmol/L (8-16); BILIRUBIN - TOTAL 0.4 mg/dL (0.2-1.3); CALCIUM 8.7 mg/dL (8.5-10.1); CARBON DIOXIDE 26.1 mmol/L (21.0-32.0); CREATININE - SERUM 1.6 mg/dL (0.6-1.3); POTASSIUM - SERUM 3.9 mmol/L (3.5-5.1)
[2016-11-22 08:05] VITALS: BP 149/66
--- NOTE | 2016-11-22 08:25 | NUR ---
ASSESSMENT PER FLOW SHEET.PT WITHOUT DISTRESS.NPO FOR SURGERY TODAY DRESSING LEFT FOOT INTACT WITH VIEW OF TOES.DARK AREAS NOTED TO SECOND TOE AND BOTTOM OF FOOT.DENIES PAIN AT PRESENT.CONTACT ISOLATION MAINTAINED.MONITOR FOR NEEDS.CALL LIGHT IN REACH
--- NOTE | 2016-11-22 12:42 | NUR ---
REMAINS NPO.WITHOUT DISSTRESS.MONITOR
[2016-11-22 12:55] VITALS: BP 164/77
--- NOTE | 2016-11-22 13:37 | NUR ---
NUTRITION MONITORING & EVAL CHART REVIEWED. PT REMAINS IN ISOLATION, CURRENTLY NPO FOR PROCEDURE. WILL PROVIDE DIET WHEN RESUMED, MONITOR PO INTAKE. RD FOLLOWING
--- NOTE | 2016-11-22 14:12 | NUR ---
TO RO VIA BED.IV ABX VANC SENT WITH PT.
--- NOTE | 2016-11-22 14:12 | NUR ---
CALLED TO ROOM. PT HEADED TO SURGERY. WANTS LAPTOP AND GREEN CASE LOCKED UP. PLACED IN NURSE DOMINATRIX, PT CARE NURSE INFORMED, AND Augusto GRAY RN OBSERVED. PT STATES THIS IS GOOD FOR HIM. DOOR TO OFFICE LOCKED.
[2016-11-22 16:37] VITALS: BP 142/52
--- NOTE | 2016-11-22 16:49 | NUR ---
BACK FROM PACU.PT AWAKE AND ALERT.DRESSING LEFT FOOT CLEAN,DRY AND WOUND VAC IN PLACE.VSS
--- NOTE | 2016-11-22 16:50 | NUR ---
COMPUTER BACK AT BEDSIDE FOR PT USE.HE IS SETTING COMPUTER UP FOR USE.CALL LIGHT IN REACH
--- NOTE | 2016-11-22 18:08 | NUR ---
REMAINS WITHOUT NEEDS,WITHOUT DISTRESS.NO CHANGE FROM INITIAL ASSESSMENT.CONT PLAN OF CARE
[2016-11-22 20:00] VITALS: BP 116/62
[2016-11-23] VITALS: BP 136/71
[2016-11-23 04:00] VITALS: BP 139/70
[2016-11-23 05:20] LABS: BASOPHILS 0.1 % (0-2); EOSINOPHILS 3.2 % (0-7); HEMATOCRIT 29.7 % (42.0-54.0); HEMOGLOBIN 9.5 g/dL (13.5-17.5); IMMATURE GRANULOCYTES 0.6 % (0-5); LYMPHOCYTES 12.1 % (15-50); MCH 27.9 pg (26.0-34.0); MCV 87.1 fL (80.0-100.0); MEAN PLATELET VOLUME 8.5 fL (7.4-10.4); MONOCYTES 9.2 % (2-11); NEUTROPHILS 74.8 % (40-80); PLATELET COUNT 309 10x3/uL (130-400); RBC 3.41 10x6/uL (4.20-6.10); RDW 15.5 % (11.5-14.5); WBC 7.9 10x3/uL (4.8-10.8)
[2016-11-23 05:38] LABS: ALBUMIN 2.1 g/dL (3.4-5.0); ANION GAP 13.6 mmol/L (8-16); BILIRUBIN - TOTAL 0.34 mg/dL (0.2-1.3); CALCIUM 8.4 mg/dL (8.5-10.1); CARBON DIOXIDE 24.7 mmol/L (21.0-32.0); POTASSIUM - SERUM 4.3 mmol/L (3.5-5.1)
[2016-11-23 08:00] VITALS: BP 121/76
--- NOTE | 2016-11-23 08:00 | NUR ---
ASSESSMENT PER FLOW SHEET.PT WITHOUT DISATRES.DRESSING TO LEFT FOOT CDI WITH WOUND VAC IN PLACE.PT DENIES PAIN.DENIES NEEDS.ISOLATION MAINTAINED.CALL LIGHT IN REACH.
[2016-11-23 11:03] VITALS: BP 159/72
[2016-11-23 15:01] VITALS: BP 162/79
--- NOTE | 2016-11-23 15:28 | NUR ---
REMIAINS WITHOUT NEEDS,WITHOUT DISTRESS.CONT TO MONITOR
--- NOTE | 2016-11-23 16:30 | NUR ---
FSBS 202,INSULIN ORDERED.PT WITHOUT NEEDS AND REMAINS WITHOUT CHANGE FROM INITIAL SHIFT ASSESSMENT.ISOLATION MAINTAINED.CONT PLAN OF CARE
[2016-11-23 20:00] VITALS: BP 153/79
[2016-11-24] VITALS: BP 141/62
--- NOTE | 2016-11-24 03:59 | NUR ---
PATIENT RESTING IN BED AND DENIES NEEDS AT THIS TIME. BED IN THE LOWEST POSITION AND CALL LIGHT WITHIN REACH. ENCOURAGED THE PATIENT TO CALL IF HE HAS NEEDS.
[2016-11-24 04:00] VITALS: BP 169/88
[2016-11-24 06:42] LABS: BASOPHILS 0.1 % (0-2); EOSINOPHILS 2.7 % (0-7); HEMATOCRIT 28.7 % (42.0-54.0); HEMOGLOBIN 9.1 g/dL (13.5-17.5); IMMATURE GRANULOCYTES 0.6 % (0-5); LYMPHOCYTES 15.3 % (15-50); MCH 27.7 pg (26.0-34.0); MCHC 31.7 g/dL (31.0-37.0); MCV 87.5 fL (80.0-100.0); MEAN PLATELET VOLUME 8.1 fL (7.4-10.4); MONOCYTES 8.1 % (2-11); NEUTROPHILS 73.2 % (40-80); PLATELET COUNT 307 10x3/uL (130-400); RBC 3.28 10x6/uL (4.20-6.10); RDW 15.4 % (11.5-14.5); WBC 8.9 10x3/uL (4.8-10.8)
[2016-11-24 07:02] LABS: ALBUMIN 2.2 g/dL (3.4-5.0); ANION GAP 14.5 mmol/L (8-16); BILIRUBIN - TOTAL 0.39 mg/dL (0.2-1.3); CALCIUM 8.7 mg/dL (8.5-10.1); CARBON DIOXIDE 25.3 mmol/L (21.0-32.0); POTASSIUM - SERUM 3.8 mmol/L (3.5-5.1); PROTEIN - SERUM 7.1 g/dL (6.4-8.2)
--- NOTE | 2016-11-24 07:10 | NUR ---
REPORT RECEIVED FROM FIRER LOW PRESSURE NURSE. CALL LIGHT IN REACH.
--- NOTE | 2016-11-24 07:10 | NUR ---
REPORT RECEIVED FROM SERVICE LINE LAYER NURSE. CALL LIGHT IN REACH.
[2016-11-24 07:48] LABS: VANCOMYCIN - RANDOM 18.6 ug/mL (10.0-20.0)
--- NOTE | 2016-11-24 09:40 | NUR ---
ASSESSMENT COMPLETED. SCD TO LLE. CONTACT ISOLATION. CALL LIGHT IN REACH. WILL CONTINUE WITH PLAN OF CARE.
[2016-11-24 10:08] VITALS: BP 154/73
--- NOTE | 2016-11-24 11:00 | NUR ---
AM MEDS ADMINISTERED PER ORDER. CALL LIGHT IN REACH.
--- NOTE | 2016-11-24 12:24 | NUR ---
ASHLEY PO. FSBS 161. HUMALOG 8 UNITS SUBQ TO RIGHT ARM. CALL LIGHT IN REACH.
[2016-11-24 13:13] VITALS: BP 115/55
--- NOTE | 2016-11-24 13:47 | NUR ---
PT AOX4 RESP EVEN AND NONLABORED PT HERE FOR LEFT FOOT CELLULITIS WOUND VAC IN PLACE AND FUNCTIONING PROPERLY FOR THIS VISIT. IV TO LEFT PICC PATENT AND INTACT SRX2 BED AT LOWEST SETTING WILL CONTINUE TO MONITOR
--- NOTE | 2016-11-24 14:32 | NUR ---
LEVAQUIN IVPB PER ORDER. IV TUBING CHANGED PER HOSPITAL POLICY. IVs TO RIGHT FOREARM AND WRIST DC'D WITH TIP INTACT. PICC LINE FLUSHED WITH SALINE AND NOW IN USE.
--- NOTE | 2016-11-24 16:20 | NUR ---
RESTING WITH EYES CLOSED. RESP EVEN AND UNLABORED. CALL LIGHT IN REACH.
--- NOTE | 2016-11-24 17:16 | NUR ---
NO INSULIN REQUIRED FOR BLOOD SUGAR OF 136. GLIPIZIDE AND COREG PO. IV VANC. DINNER TRAY GIVEN TO PATIENT. CALL LIGHT IN REACH.
[2016-11-24 17:37] VITALS: BP 127/75
--- NOTE | 2016-11-24 18:03 | NUR ---
NO CHANGES IN INITIAL ASSESSMENT. SCD TO RLE. CALL LIGHT IN REACH. WILL CONTINUE WITH PLAN OF CARE.
[2016-11-24 20:00] VITALS: BP 151/63
--- NOTE | 2016-11-24 23:03 | NUR ---
2300-managed care coordinator note-resting quietly on left side. wound vac noted to right upper foot set at 125 cm. dried bloody drainage noted to david wrap on right foot. resp easy and unlabored. call light in reach
[2016-11-25 00:35] VITALS: BP 142/61
[2016-11-25 04:00] VITALS: BP 153/62
--- NOTE | 2016-11-25 07:15 | NUR ---
REPORT RECEIVED FROM COUNTY COMMISSIONER NURSE. CALL LIGHT IN REACH.
[2016-11-25 09:02] VITALS: BP 196/91
--- NOTE | 2016-11-25 09:20 | NUR ---
ASSESSMENT COMPLETED. SCD TO RLE. DENIES NEEDS. CALL LIGHT IN REACH. WILL CONTINUE WITH PLAN OF CARE.
--- NOTE | 2016-11-25 10:28 | NUR ---
AM MEDS ADMINISTERED PER ORDER. CALL LIGHT IN REACH.
--- NOTE | 2016-11-25 12:00 | NUR ---
ASHLEY DOMINGUEZ. FSBS 132 SO NO COVERAGE REQUIRED.
[2016-11-25 12:44] VITALS: BP 174/87
--- NOTE | 2016-11-25 14:35 | NUR ---
MATTHEW PO PER ORDER. CALL LIGHT IN REACH.
--- NOTE | 2016-11-25 16:15 | NUR ---
NO NEEDS VOICED AT THIS TIME. CALL LIGHT IN REACH.
--- NOTE | 2016-11-25 17:17 | NUR ---
IDA 8 UNITS FOR BLOOD SUGAR OF 163.
[2016-11-25 17:19] VITALS: BP 152/66
--- NOTE | 2016-11-25 18:20 | NUR ---
NO CHANGES IN INITIAL ASSESSMENT. CALL LIGHT IN REACH. SCD TO RLE. WILL CONTINUE WITH PLAN OF CARE.
--- NOTE | 2016-11-25 18:23 | NUR ---
PATIENT IN CONTACT ISOLATION. ISOLATION PRECAUTIONS MAINTAINED. WOUND VAC INTACT. PATIENT REQUESTED ICE WATER. BROUGHT PATIENT ICE WATER. PATIENT DENIES FURTHER NEEDS. PATIENT IS LAYING ON HIS RIGHT SIDE IN BED. CALL LIGHT IN REACH. BED IN LOWEST POSITION.
[2016-11-25 20:00] VITALS: BP 140/78
--- NOTE | 2016-11-25 20:00 | NUR ---
ASSESSMENT PER FLOWSHEET. IV PATENT LEFT UPPER ARM PICC LINE OF 1/2NS INFUSING AT 50CC'S/HR. SITE CLEAR. PT IN CONTACT ISOLATION. WOUND VAC TO LEFT FOOT TOE SITE. SCD TO RIGHT FOOT ONLY.
--- NOTE | 2016-11-25 21:30 | NUR ---
MEDS GIVEN PER MAR. BXAW=[id number]. NO COVERAGE NEEDED. ADA SNACK SERVED 100% CONSUMED.
[2016-11-26] VITALS: BP 150/71
--- NOTE | 2016-11-26 | NUR ---
EYES CLOSED RESPIRATIONS WITH EASE AND UNLABORED.
[2016-11-26 04:00] VITALS: BP 167/72
[2016-11-26 06:59] LABS: ANION GAP 13.3 mmol/L (8-16); C-REACTIVE PROTEIN 4.7 mg/dL (0.0-0.9); CALCIUM 8.8 mg/dL (8.5-10.1); CARBON DIOXIDE 27.5 mmol/L (21.0-32.0); CREATININE - SERUM 1.9 mg/dL (0.6-1.3); POTASSIUM - SERUM 3.8 mmol/L (3.5-5.1)
--- NOTE | 2016-11-26 07:35 | NUR ---
AWAKE AND ALERT AT THIS TIME. ASSESSMENT PERFORMED PER FLOWSHEET. REMAINS IN CONTACT ISOLATION. CALL LIGHT IN REACH, WILL CONTINUE WITH PLAN OF CARE.
[2016-11-26 07:44] LABS: ERYTHROCYTE SEDIMENTATION RATE 83 mm/hr (0-20)
[2016-11-26 08:00] VITALS: BP 180/87
--- NOTE | 2016-11-26 09:32 | NUR ---
SCHEDULED MEDICATIONS ADMINISTERED AT THIS TIME. WOUND VAC REMAINS PATENT TO LEFT FOOT. DENIES NEEDS AT THIS TIME. REMAINS IN ISOLATION. CALL LIGHT IN REACH, WILL CONTINUE WITH PLAN OF CARE.
--- NOTE | 2016-11-26 11:05 | NUR ---
WOUND VAC DRESSING CHANGE WOUND TYPE: surgical WOUND LOCATION: left foot WOUND AGE IN MONTHS: week DEBRIDEMENT ATTEMPTED IN LAST 10 DAYS? DATE/TYPE: SERIAL DEBRIDEMENTS REQUIRED? MEASUREMENT DATE: 11/26/16 5.5cm x 4.5cm x 2.7cm FULL THICKNESS? yes MUSCLE, TENDON OR BONE EXPOSED? muscle UNDERMINING? no TUNNELING/SINUS? no APPEARANCE OF WOUND BED : red/beefy EXUDATE (AMOUNT, COLOR, ODOR): moderate bloody no odor FOAM TYPE: black # OF PIECES USED: 2 pieces EDUCATION: troubleshooting leaks. Pt voiced understanding. May go home soon with home vac Wound care will continue to monitor.
[2016-11-26 11:35] VITALS: BP 172/78
--- NOTE | 2016-11-26 11:43 | NUR ---
CM REASSESSMENT NOTE: CM FAXED IV ABX ORDER TO [facility] STEELE AND THE COST IS 15.18 A DAY. CYNTHIA STEELE STATED PATIENT COULD PAY THE FEE OUT IN PAYMENTS AND WOULD NOT HAVE TO HAVE A DOWN PAYMENT THIS TIME. PATIENT WAS TOLD THE COST AND CONDITIONS AND HE AGREED TO THEM. CM WILL CONTINUE TO FOLLOW PATIENT WITH D/C NEEDS AND PLANS.
[2016-11-26] MEDS ORDERED: VANCOMYCIN 1 GM/1 G1 IV (12:29)
[2016-11-26] MEDS ORDERED: LEVAQUIN750 MG PO (12:30)
--- NOTE | 2016-11-26 13:45 | NUR ---
CONNECTED TO HOME WOUND VAC AT THIS TIME. INSTRUCTED PT ON ENGINEERING TECHNOLOGY INSTRUCTOR AND HOW TO CHANGE CANISTER.
--- NOTE | 2016-11-26 14:35 | NUR ---
D/C PAPERWORK SIGNED AND PICC LINE TO LEFT UPPER ARM PATENT WITH BRISK BLOOD RETURN TO BOTH PORTS. FLUSHED BOTH LUMENS WITH 10ML OF NORMAL SALINE. SWAB CAPS IN PLACE. WILL D/C HOME WHEN RIDE AVAILABLE.
--- NOTE | 2016-11-26 16:40 | NUR ---
CM REASSESSMENT NOTE: PATIENT DISCHARGED HOME TODAY-BROTHER IS DRIVING. [facility] ([facility] AND [facility] [place] NOTIFIED.
== END 2016-11-26 15:25 | disposition home health service (06) | DRG 617 ==
LOC: D.MS 11:28
PROVIDERS: Family Medicine Adult Medicine; Student in an Organized Health Care Education/Training Program; ADMIT Orthopaedic Surgery
PROC: 0QBP0ZZ Excision of Left Metatarsal, Open Approach (ICD-10-PCS; 2016-11-22)
PROC: 0Y6N0ZB Detachment at Left Foot, Partial 2nd Ray, Open Approach (ICD-10-PCS; principal; 2016-11-22 15:30)
PROC: 02HV33Z Insertion of Infusion Device into Superior Vena Cava, Percutaneous Approach (ICD-10-PCS; 2016-11-23)
DX: E11.621 Type 2 diabetes mellitus with foot ulcer (principal); L03.116 Cellulitis of left lower limb; M86.9 Osteomyelitis, unspecified; E87.1 Hypo-osmolality and hyponatremia; L97.523 Non-pressure chronic ulcer of other part of left foot with necrosis of muscle; E11.65 Type 2 diabetes mellitus with hyperglycemia; I25.10 Atherosclerotic heart disease of native coronary artery without angina pectoris; N17.9 Acute kidney failure, unspecified; E11.69 Type 2 diabetes mellitus with other specified complication; E78.5 Hyperlipidemia, unspecified; D64.9 Anemia, unspecified; Z87.891 Personal history of nicotine dependence; B95.62 Methicillin resistant Staphylococcus aureus infection as the cause of diseases classified elsewhere

== ENCOUNTER → 2016-12-10 11:57 | Outpatient (CLI) | payer MEDICARE ==
[2016-11-20 13:44] VITALS: BMI 27.1
[~2016-12-10 11:57] MED LIST changes: +LANTUS INSULIN10 ML SC; +LEVAQUIN750 MG PO
[2016-12-10 13:53] LABS: CREATININE - SERUM 2.1 mg/dL (0.6-1.3); VANCOMYCIN - TROUGH 8.9 ug/mL (10.0-20.0)
== END | disposition home or self-care (01) ==
LOC: D.LABREF 11:57
PROVIDERS: Student in an Organized Health Care Education/Training Program
DX: M86.9 Osteomyelitis, unspecified (principal)